=== PATIENT | male | born 1990 | race Caucasian/White ===

== ENCOUNTER 2018-10-08 11:54 | Emergency (ER) | payer OTHER ==
[2018-10-08] MEDS ORDERED: CYCLOBENZAPRINE10 M1 PO (13:09)
[2018-10-08 13:36] VITALS: BP 143/90
== END 2018-10-08 13:20 | disposition home or self-care (01) ==
LOC: ED 11:54
DX: S09.90XA Unspecified injury of head, initial encounter (principal); M54.2 Cervicalgia; M54.5 Low back pain; R40.2410 Glasgow coma scale score 13-15, unspecified time; Z23 Encounter for immunization; W31.3XXA Contact with prime movers, initial encounter; Y93.H2 Activity, gardening and landscaping; Y92.73 Farm field as the place of occurrence of the external cause; Y99.0 Civilian activity done for income or pay
CPT/HCPCS: 15973; L0172